=== PATIENT | female | born 1955 | race Hispanic/Latino ===

== ENCOUNTER → 2021-08-27 | Outpatient (CLI) | payer OTHER | LOC: RAD 10:11 | PROVIDERS: ATTEND Internal Medicine | DX: M54.2 Cervicalgia (principal) | CPT/HCPCS: 72050 ==

== ENCOUNTER → 2022-02-16 | Outpatient (CLI) | payer OTHER | LOC: US 08:18 | PROVIDERS: ATTEND Internal Medicine | DX: R05.3 Chronic cough (principal); E04.2 Nontoxic multinodular goiter | CPT/HCPCS: 71046; 76536 ==